=== PATIENT | female | born 2000 | race Two or more races ===

== ENCOUNTER 2022-11-10 16:21 | Emergency (ER) | payer OTHER ==
[~2022-11-10] VITALS: Ht 160 cm; Wt 53.5 kg
[2022-11-10] MEDS ORDERED: CEPHALEXIN500 M1 PO (19:08)
== END 2022-11-10 19:37 | disposition home or self-care (01) ==
LOC: ER 16:21
DX: N39.0 Urinary tract infection, site not specified (principal); K29.70 Gastritis, unspecified, without bleeding; B96.29 Other Escherichia coli [E. coli] as the cause of diseases classified elsewhere; Z16.11 Resistance to penicillins